=== PATIENT | female | born 1990 | race Caucasian/White ===

== ENCOUNTER → 2018-02-02 11:18 | Outpatient (REF) | payer MEDICAID, SELFPAY ==
[2018-02-05 15:05] LABS: Chlamydia Result Negative; GC Result Negative; Specimen Description CERVIX
== END ==
LOC: LBN 11:18
PROVIDERS: PCP Family Medicine; Visit Provider Nurse Practitioner Women's Health
DX: Z11.3 Encounter for screening for infections with a predominantly sexual mode of transmission (principal)
CPT/HCPCS: 87491; 87591

== ENCOUNTER 2018-11-19 11:27 | Outpatient (CLI) | payer MEDICAID, SELFPAY ==
--- NOTE | 2018-11-19 11:15 | DI.RAD_ITS ---
SYMPTOM/DIAGNOSIS: LT FOOT AND ANKLE PAIN, BRUISE, S93.402A LEFT ANKLE: There is some soft tissue swelling, greatest around the lateral malleolus. No fracture or ankle mortise widening is seen. No talar dome defect is identified. IMPRESSION: Soft tissue swelling. LEFT FOOT: No fracture or dislocation is seen. There is medial prominence of the navicular. IMPRESSION: No acute abnormality.
== END 2018-11-19 11:47 ==
PROVIDERS: PCP Family Medicine; Visit Provider Nurse Practitioner Family
DX: S93.402A Sprain of unspecified ligament of left ankle, initial encounter (principal); M25.572 Pain in left ankle and joints of left foot; M79.672 Pain in left foot; M79.89 Other specified soft tissue disorders
CPT/HCPCS: 73610; 73630

== ENCOUNTER 2019-03-12 10:25 | Emergency (ER) | payer MEDICAID, SELFPAY ==
[2019-03-12 10:27] VITALS: BP 131/67; PULSE 83; RESP 16; O2SAT 99
--- NOTE | 2019-03-12 10:39 | W.ED.GENAD ---
Discharge Plan Disposition Patient Disposition: HOME Discharge Details Chief Complaint: Nk/Back Pain Clinical Impression: Low back pain, Syncope Primary Care Provider: Madhuri Chaney ED Provider: Reg Day Home Meds and New Rx's Prescriptions: New diazepam [Valium] 2 mg tablet 2 mg PO BID PRN (Reason: muscle spasm) Qty: 10 RF: 0 Continued lidocaine [Anecream] 30 GM cream 1 gm Topical Q6H PRN Qty: 1 RF: 2 cholecalciferol (vitamin D3) [Vitamin D3] 2,000 UNIT capsule 2,000 unit PO DAILY RF: 0 Mirena 1 EACH intrauterine device 1 ea Intrauterine ONCE Qty: 1 RF: 0 Discharge Instructions Instructions: Syncope (ED), Low Back Strain (ED) Additional Instructions: Please take ibuprofen over the counter. Take 600mg by mouth every 6 hours as needed for pain. Please take acetaminophen (tylenol) - 650mg every 6 hours by mouth as needed for pain. Use [id number] lidocaine patches. Dose according to label. Please drink plenty of fluid and allow for plenty of rest. Please avoid activities that worsen back pain including heavy lifting, bending, twisting. Please contact your primary care physician to arrange follow-up. Return to the ER for any worsening or new concerning symptoms. Stand Alone Forms: Work Release Referrals: Madhuri Chaney MD, [place] [Primary Care Provider] - Discharge Data Discharge Date/Time-TO BE ENTERED AT DEPARTURE: 03/12/19 14:57 Medical Decision Making 12:00 -- 29-year-old female presents with severe left low back pain and spasm and syncopal episode at PCP office. Patient hemodynamically stable and mentating well. Screening ECG was reviewed and interpreted by me: Normal sinus rhythm 75 bpm, normal axis, no signs of HCM, no signs of Brugada, no WPW, nondiagnostic. PERC applies. Suspect syncope secondary to hypovolemia in combination with severe pain. Consider electrolyte abnormalities. Less likely arrhythmia. I will check screening labs and monitor patient on secured entrance monitor. I suspect back pain is related to muscle spasm versus disc herniation. She is neurologically intact. No signs of saddle anesthesia. Plan to treat with lidocaine patch, Toradol, Valium. Plan to reassess. Will give IV fluid bolus. 14:45 -- Patient was reassessed after analgesia and significantly improved. No able to ambulate. Patient remains hemodynamically stable. Patient now able to ambulate. Plan will be to have her follow-up with her primary care physician. Disposition decision was made weighing the risks and benefits of hospitalization versus outpatient treatment, the risk for further decompensation, and the patient's wishes. The patient was stable and requested discharge. Prior to discharge, my usual and customary return precautions were reviewed with the patient - this included follow-up instructions and reason to return to the emergency department if condition worsens, does not improve as expected, or other new concerns arise. HPI General Mode of arrival: ambulatory. Date/Time Provider Initiated Documentation: 03/12/19 10:30. Limitations to Documentation: no limitations. Information obtained by: patient. HPI Narrative: 29-year-old female presents after syncopal episode at primary care clinic. Patient notes severe pain in her left lower back that started last week. Pain improved over the weekend and she is able to attend a wedding. Pain returned yesterday and has persisted. Pain was severe yesterday. She saw her chiropractor. She did take some ibuprofen yesterday. She has not taken any ibuprofen today. She notes that she has not eaten or drinking anything this morning. She had an appoint with her primary care physician and when she went to get out of the car she was feeling somewhat dizzy walking to the clinic. When she got to the clinic she felt like she was going to pass out and was assisted to a wheelchair. Patient was then assisted to the floor. She did lose consciousness. The patient's primary care physician, patient was found in waiting room in wheelchair noted to be somnolent and had a syncopal episode while being assisted to the ground. She was found to have dilated fixed pupils. Intranasal Narcan was administered and the patient immediately responded within seconds noting that she was feeling like she could see again. Patient was going to see PCP today for Patient denies opioid use. Related Data Home Medications Medication Instructions Recorded Confirmed lidocaine [Anecream] 1 gm TOPICAL Q6H PRN #1 tub 10/28/16 03/14/19 cholecalciferol (vitamin D3) 2,000 unit PO DAILY 12/25/17 03/14/19 [Vitamin D3] Mirena 1 ea INTRAUTERINE ONCE #1 implant 02/02/18 03/14/19 diazepam [Valium] 2 mg PO BID PRN #10 tab 03/12/19 03/14/19 Previous Rx's Medication Instructions Recorded Mirena 1 ea INTRAUTERINE ONCE #1 implant 02/02/18 diazepam [Valium] 2 mg PO BID PRN #10 tab 03/12/19 Allergies Allergy/AdvReac Type Severity Reaction Status Date / Time ciprofloxacin [From Cipro] AdvReac Severe TOOK OUT Verified 03/14/19 13:24 HER IMMUNE SYSTEM General Stated Complaint: Nk/Back Pain CECILY: 3 Review of Systems Review of Systems ROS Unobtainable: All systems reviewed & are unremarkable except as noted in HPI and below Constitutional Constitutional: Denies fever(s) Neurologic Neurologic: Reports as per HPI [facility] Medical History IBS (irritable bowel syndrome) Hedy-rectal abscess Rectal bleeding Surgical History Colonoscopy - MAC History of colonoscopy (Inactive 04/28/14) Incision & Drainage, Abscess or Hematoma perirectal abscess Family History Mother No problems noted. Father Neoplasm PROSTATE Prostate cancer Brother Anxiety Depression Maternal Grandfather , 63 Diabetes Heart disease Hyperlipidemia Lung cancer Paternal Grandfather , 81 Heart disease Hyperlipidemia Maternal Grandmother , late 50s Depression Leukemia Paternal Grandmother , 80 History of agoraphobia Social History Smoking/Tobacco Use Status: Never Alcohol Intake: current Alcohol Intake frequency: a few times a week Alcohol type: wine and hard liquor Drug use: Rarely Substance use type: marijuana Caregiver/Support person: Yes Housing: apartment Do you need help understanding health information?: Never Pets and animals: Yes Pets and animals: cat(s) Sexually active: Yes Do you think of yourself as: straight/heterosexual Current gender identity: female What is your relationship status?: refused to answer How often do you talk on the phone with friends or family?: decline to answer How often do you get together with friends or relatives?: three or more times per week How often do you attend rastafarian or restorationism services?: decline to answer Do you belong to any clubs or organized social groups?: no Panel score (0-1 are the most socially isolated patients): 1 What type of physical activity do you participate in: bicycling and other Details: Spininng Duration: > 90 minutes/day Frequency: 5-6 times per week Roxy/Adventist: No preference Special roxy needs: No Seatbelt use: always Helmet use: Yes Helmet use: always Drive intox or ride w/intox corrugated 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 Do you feel safe at home: Yes Do you feel safe in your relationship?: Yes Exam Const General: cooperative and no acute distress HENMT Head: normocephalic and atraumatic Mouth: moist mucous membranes Eyes Conjunctivae: normal conjunctivae Sclera: normal sclerae EOM: EOM intact bilaterally Neck Neck: trachea midline and supple Resp Auscultation: clear to auscultation bilaterally, no rales, no rhonchi and no wheezes Cardio Jugular venous pressure: no JVD Rate: regular rate and not tachycardic Rhythm: regular rhythm Heart Sounds: no murmurs GI Palpation: soft, not firm, no guarding, no masses, not rigid and nontender Back/Spine/Pelvis Thoracic/Lumbar Spine: paraspinal tenderness (lumbar), No thoracic spinal tenderness and No lumbar spinal tenderness Skin General skin exam: no rashes or lesions noted Neuro General: alert, awake, oriented x3 and tone normal Cranial Nerves: CN's II-XI intact bilaterally Cognition: normal cognition Speech: speech normal Motor: muscle tone normal throughout and strength 5/5 throughout Sensory Exam: no sensory deficits noted and other (no saddle anesth) Extrem General: no edema Psych Appearance: grossly normal Mental Status: mental status grossly normal Course Vital Signs Vital signs: Vital Signs Pulse 83 03/12/19 10:27 Respiratory Rate 16 03/12/19 10:27 Blood Pressure 131/67 03/12/19 10:27 Pulse Oximetry 99 03/12/19 10:27 Pulse 83 03/12/19 10:27 Respiratory Rate 16 03/12/19 10:27 Respiratory Effort Non-Labored 03/12/19 10:38 Blood Pressure 131/67 03/12/19 10:27 Blood Pressure Position Supine 03/12/19 10:27 Pulse Oximetry 99 03/12/19 10:27 Oxygen Delivery Method Room Air 03/12/19 10:27 Oxygen Flow Rate 0 03/12/19 10:27 Pain Level 10 03/12/19 10:27 Comment 03/12/19 10:27
[2019-03-12 10:50] LABS: Abs Immature Grans 0.02 k/cumm (0.0-0.09); Absolute Basophil Count 0.02 k/cumm (0.0-0.2); Absolute Lymphocyte Count 1.35 k/cumm (1.2-3.4); Absolute Monocyte Count 0.78 k/cumm (0.11-0.7); Absolute Neutrophil Count 7.63 k/cumm (1.2-6.7); Basophils % 0.2; HCT 39.7 % (36.0-46.0); HGB 13.5 g/dL (12.0-15.5); Immature Grans % 0.2; Lymphocytes % 13.6; Mean Corpuscular Hemoglobin 30.1 pg (27.0-33.0); Mean Corpuscular Volume 88.6 fL (80-95); Mean Platelet Volume 9.5 fL (8.0-11.0); Monocytes % 7.9; Neutrophils % 77.1; Platelet Count 318 x1000/uL (130-400); RBC 4.48 m/cumm (4.00-5.20); RBC Distribution Width 12.1 % (11.7-14.6)
[2019-03-12 11:04] LABS: ALT 20 U/L (14-59); AST 18 U/L (15-37); Albumin 3.7 g/dL (3.4-5.0); Alkaline Phosphatase 80 U/L (46-116); Anion Gap 11.8 mmol/L (3-11); BUN 5 mg/dL (7-18); Bilirubin, Total 0.6 mg/dL (0.2-1.0); CO2 24.2 mmol/L (21.0-32.0); CREATININE 0.82 mg/dL (0.55-1.02); Calcium 8.7 mg/dL (8.5-10.1); Chloride 105 mmol/L (98-107); Glucose 107 mg/dL (70-100); Potassium 3.6 mmol/L (3.5-5.1); Sodium 141 mmol/L (136-145); Total Protein 6.9 g/dL (6.4-8.2)
[2019-03-12 11:05] LABS: Troponin I < 0.05 ng/mL (0.00-0.06)
[2019-03-12] MEDS: Normal Saline 1,000 ML 1000 ML IV (11:19)
[2019-03-12] MEDS: Ketorolac 30 MG/ML VIAL IVP (11:22)
[2019-03-12] MEDS: diazePAM 5 MG TAB PO (11:22)
[2019-03-12] MEDS: Lidocaine 5% Patch 1 PATCH (12:43)
--- NOTE | 2019-03-12 13:30 | NUR.NOTE ---
Nursing Note: pt resting in stretcher. No signs of distress. mother at bedside pt reports that she still has back pain, but that her back has not spasmed since lidocaine patch application. pt moving around with less difficulty.
[2019-03-12 13:37] LABS: *AMPHETAMINES SCREEN URINE Negative (Negative); *BARBITURATES SCREEN URINE Negative (Negative); *BENZODIAZEPINES SCREEN URINE Negative (Negative); Cannabinoids THC Negative (Negative); Cocaine Screen,Urine Negative (Negative); METHADONE URINE SCREEN Negative (Negative); OPIATES URINE SCREEN Negative (Negative)
[2019-03-12 13:39] LABS: Tricyclic Antidepressants Negative (Negative)
[2019-03-12 14:57] VITALS: BP 103/85; PULSE 85; RESP 16; O2SAT 100
== END 2019-03-12 14:57 | disposition home or self-care (01) ==
PROVIDERS: Emergency Provider Student in an Organized Health Care Education/Training Program; PCP Family Medicine
DX: M54.9 Dorsalgia, unspecified (principal); R42 Dizziness and giddiness
CPT/HCPCS: 36415; 80053; 80307; 81025; 93005; 96361; 96374; 99284; 84484; 85025; 93010; J1885

== ENCOUNTER 2019-03-14 08:20 | Outpatient (CLI) | payer MEDICAID, SELFPAY ==
--- NOTE | 2019-03-14 09:30 | DI.RAD_ITS ---
EXAM: XR LUMBAR SPINE COMPLETE INDICATION: acute susy low back pain, M54.5. COMPARISON: No exams were available for comparison TECHNIQUE: 2D digital imaging was performed. FINDINGS: Five views were obtained. Note is made of an IUD in the pelvic midline. The hips and SI joints appe ar unremarkable as visualized. Intervertebral disc spaces are well maintained. No evidence of spond ylolysis or spondylolisthesis. No bony abnormality seen. IMPRESSION: Negative examination of the lumbar spine.
== END 2019-03-14 08:40 ==
PROVIDERS: PCP Family Medicine; Visit Provider Family Medicine
DX: M54.5 Low back pain (principal); Z97.5 Presence of (intrauterine) contraceptive device
CPT/HCPCS: 72110

== ENCOUNTER 2020-10-09 04:38 | Outpatient (CLI) | payer MEDICAID, SELFPAY ==
--- NOTE | 2020-10-09 08:40 | DI.RAD_ITS ---
Exam(s) XR SACROILIAC JOINTS EXAM: XR SACROILIAC JOINTS CLINICAL HISTORY: ACUTE BILAT LOW BACK PAIN,SI PAIN,M54.5. TECHNIQUE: 2D digital imaging was performed. COMPARISON: CR XR LUMBAR SPINE COMPLETE from 03/14/2019 FINDINGS: BONES: No acute fracture is present. No bony destructive lesion is seen. JOINTS: No dislocation present. No erosions, ankylosis or sclerosis in the sacroiliac joints. SOFT TISSUE: There is an IUD in the pelvis. IMPRESSION: Unremarkable radiographs of the sacroiliac joints. DATA REPOSITORY: RADIATION DOSE DELIVERED:
== END 2020-10-09 04:58 ==
PROVIDERS: PCP Family Medicine; Visit Provider Family Medicine
DX: M54.5 Low back pain (principal); M53.3 Sacrococcygeal disorders, not elsewhere classified; Z97.5 Presence of (intrauterine) contraceptive device
CPT/HCPCS: 72202

== ENCOUNTER 2020-11-09 09:50 | Outpatient (CLI) | payer MEDICAID, SELFPAY ==
[2020-11-09 12:35] LABS: ESR < 1 mm/hr (0-20)
[2020-11-09 12:43] LABS: C-Reactive Protein 0.07 mg/dL (0.0-0.3)
[2020-11-09 16:37] LABS: Rheumatoid Factor <8.6 IU/mL (<12.0)
[2020-11-10 10:42] LABS: Cyclic Citrullinated Peptide <2.5 U/mL (<5.0)
[2020-11-10 11:08] LABS: Lyme Ab w Rflx to Lyme Confirm Negative (Negative)
[2020-11-10 14:24] LABS: ANA Interpretation Negative (Negative)
[2020-11-12 15:15] LABS: HLA-B27 Result Negative
== END 2020-11-09 09:51 | disposition home or self-care (01) ==
LOC: LOS 09:51
PROVIDERS: PCP Family Medicine; Visit Provider Family Medicine
DX: M54.5 Low back pain (principal); M25.59 Pain in other specified joint
CPT/HCPCS: 85652; 86200; 86812; 86038; 86140; 86431; 86618

== ENCOUNTER 2020-11-23 01:50 | Outpatient (CLI) | payer MEDICAID, SELFPAY ==
--- NOTE | 2020-11-23 11:30 | DI.MRI_ITS ---
Exam(s) MR LUMBAR SPINE WO EXAM: MR LUMBAR SPINE WO CLINICAL HISTORY: LOW BACK PAIN times 3 yrs. ? sequestered disc,RADICULOPATHY,SI JOINT DYS-. TECHNIQUE: Multiplanar multisequence MRI of the Lumbar spine was performed. COMPARISON: CR XR LUMBAR SPINE COMPLETE from 03/14/2019 CR XR LUMBAR SPINE COMPLETE from 03/14/2019 FINDINGS: In reviewing the March 2019 plain films the 12th ribs are rudimentary. Conus medullaris is at normal level. There is no evidence of conus mass nor subjacent clumping of in trathecal nerve roots to suggest arachnoiditis. The distal thecal sac appears unremarkable.There is no evidence of Tarlov intrasacral cysts nor other significant findings within the sacral canal Bones:There are no fractures nor ominous osseous lesions in the lumbar vertebral bodies and visualize d sacrum. With respect to the individual levels... T12-L1: Unremarkable L1-2: Normal disc height and signal. No disc herniation nor central canal stenosis.No foraminal steno sis L2-3: Normal disc height. No disc herniation nor central canal stenosis.No foraminal stenosis.No face t arthropathy. L3-4: Normal disc height. Decreased disc hydration signal. There is symmetrical annular bulging whi ch slightly flattens the anterior aspect of the thecal sac.Central canal dimensions are lower normal. No foraminal stenosis. No significant facet arthropathy. L4-5: Normal disc height. There is a large right paracentral disc herniation at this level which ext ends posteriorly 7 millimeters and is approximately 12 millimeters wide. This compresses the central and right side of the thecal sac at this level as well as occupying the right lateral recess. It do es not extend appreciably into the exiting right neural foramen. There is no significant facet arthr opathy at this level. L5-S1: Normal disc height and signal. At this level there is a central subligamentous disc bulge whi ch slightly indents the anterior aspect of thecal sac. There is no significant central canal stenosi s. The bulge does not extend into the exiting neural foramina and there is no foraminal stenosis on either side. No facet arthropathy. Soft tissues: paraspinal soft tissues appear unremarkable. IMPRESSION: 1. Main finding here is a large central-right paracentral disc protrusion at L4-5 level as described above. This compresses the central and right side of the thecal sac and occupies the right lateral r ecess without extending appreciably into the exiting right neural foramen. 2. Smaller subligamentous central disc bulge at L5-S1 level. No significant canal stenosis nor praful inal stenosis at this level. 3. Mild symmetrical annular bulging at L3-4 level. DATA REPOSITORY:
== END 2020-11-23 02:10 ==
PROVIDERS: PCP Family Medicine; Visit Provider Family Medicine
DX: M51.16 Intervertebral disc disorders with radiculopathy, lumbar region (principal); M53.3 Sacrococcygeal disorders, not elsewhere classified; M51.17 Intervertebral disc disorders with radiculopathy, lumbosacral region
CPT/HCPCS: 72148

== ENCOUNTER 2021-06-15 15:47 | Outpatient (REF) | payer MEDICAID, SELFPAY ==
--- NOTE | 2021-06-15 15:10 | PAPFT_PTH ---
PATIENT: Barbara Gordon LOC: PATTI U#:[id number] AGE/SX: 31/F ROOM: RE06/15/[address]: Adriana Regalado NP : 1990 BED: DIS: 06/15/2021 SPEC #: [id number] RECD: 06/15/21 18:25 STATUS: JORGE VASQUEZ #: [id number] MIAH: 06/15/21 15:[address]: Adriana Regalado NP DEPT: [facility] Cytology RECD BY: Nishi Wright ENTERED: 06/15/21 18:26 SP TYPE: PAPFT OTHR DR: Madhuri Chaney MD, DC Tissues: 1 - CX/ENDOCX FOR PAP SMEARS Procedures: PAP THIN PREP/UVM Screening Comments: [id number]
== END 2021-06-15 15:48 | disposition home or self-care (01) ==
LOC: LBN 15:47
PROVIDERS: PCP Family Medicine; Visit Provider Nurse Practitioner Women's Health
DX: Z12.4 Encounter for screening for malignant neoplasm of cervix (principal)
CPT/HCPCS: 88142

== ENCOUNTER 2021-06-25 01:43 | Outpatient (CLI) | payer MEDICAID, SELFPAY ==
[2021-06-26 14:01] LABS: COVID-19 RT-PCR UVMMC Result Positive (Negative)
== END 2021-06-25 01:44 | disposition home or self-care (01) ==
PROVIDERS: PCP Family Medicine; Visit Provider Dentist General Practice
DX: Z20.822 Contact with and (suspected) exposure to COVID-19 (principal)
CPT/HCPCS: U0003

== ENCOUNTER 2024-05-08 02:25 | Outpatient (CLI) | payer BC, SELFPAY ==
[2024-05-08 17:08] LABS: Panorama Kit Sent via Fed Ex
[2024-05-08 17:14] LABS: Abs Immature Grans 0.04 10^3/uL (0.0-0.06); Absolute Basophil Count 0.04 10^3/uL (0.0-0.2); Absolute Eosinophil Count 0.15 10^3/uL (0.0-0.7); Absolute Lymphocyte Count 1.94 10^3/uL (1.2-3.4); Absolute Neutrophil Count 7.27 10^3/uL (1.2-6.7); Basophils % 0.4 %; Eosinophils % 1.5 %; HCT 37.9 % (36.0-46.0); HGB 12.8 g/dL (11.2-15.7); Immature Grans % 0.4 %; Lymphocytes % 19.1 %; MCH 29.6 pg (27.0-33.0); MCHC 33.8 % (32.0-36.0); MCV 88 fL (80-95); MPV 9.8 fL (8.0-11.0); Monocytes % 6.9 %; Neutrophils % 71.7 %; Platelet Count 286 10^3/uL (130-400); RBC 4.33 10^6/uL (3.93-5.22); RDW 11.8 % (11.7-14.6); WBC 10.14 10^3/uL (4.4-10.8)
[2024-05-09 19:31] LABS: Hepatitis B Surface Ag Negative (Negative)
[2024-05-09 20:03] LABS: HIV-1/2 Ag & Ab Screen Negative (Negative)
[2024-05-09 20:07] LABS: Hepatitis C Ab w Rflx HCV PCR Negative (Negative)
[2024-05-10 11:21] LABS: Rubella IgG Ab (UVM) Positive (See Note)
[2024-05-10 11:25] LABS: Varicella IgG Antibody Positive (See Note)
[2024-05-10 11:26] LABS: Chlamydia Result Negative (Negative); GC Result Negative (Negative)
[2024-05-12 15:18] LABS: Syphilis IgG w/Reflex Nonreactive (Nonreactive)
== END 2024-05-08 02:26 | disposition home or self-care (01) ==
LOC: LBO 02:25
PROVIDERS: PCP Nurse Practitioner Family; Visit Provider Advanced Practice Midwife
DX: Z34.91 Encounter for supervision of normal pregnancy, unspecified, first trimester (principal)
CPT/HCPCS: 36415; 86787; 86803; 86850; 86900; 86901; 87340; 87389; 87491; 87591; 85025; 86762; 86780; 87086

== ENCOUNTER 2024-05-14 02:22 | Outpatient (CLI) | payer BC, SELFPAY ==
[2024-05-14 12:35] LABS: Glucose,1 Hr (Glucola) 76 mg/dL (80-140)
== END 2024-05-14 02:23 | disposition home or self-care (01) ==
LOC: LBO 02:22
PROVIDERS: PCP Nurse Practitioner Family; Visit Provider Advanced Practice Midwife
DX: Z34.90 Encounter for supervision of normal pregnancy, unspecified, unspecified trimester (principal)
CPT/HCPCS: 36415; 82950

== ENCOUNTER 2024-08-23 00:19 | Outpatient (CLI) | payer MEDICAID, SELFPAY ==
[2024-08-23 12:11] LABS: HCT 36.6 % (36.0-46.0); HGB 12.3 g/dL (11.2-15.7); MCH 29.1 pg (27.0-33.0); MCHC 33.6 % (32.0-36.0); MCV 87 fL (80-95); MPV 9.6 fL (8.0-11.0); Platelet Count 247 10^3/uL (130-400); RBC 4.22 10^6/uL (3.93-5.22); RDW 12.2 % (11.7-14.6); RDW-SD 38.6 fL; WBC 13.14 10^3/uL (4.4-10.8)
[2024-08-23 12:49] LABS: Glucose,1 Hr (Glucola) 64 mg/dL (80-140)
== END 2024-08-23 00:20 | disposition home or self-care (01) ==
LOC: LBO 00:19
PROVIDERS: PCP Nurse Practitioner Family; Visit Provider Advanced Practice Midwife
DX: Z34.92 Encounter for supervision of normal pregnancy, unspecified, second trimester (principal)
CPT/HCPCS: 36415; 82950; 85027

== ENCOUNTER 2024-10-18 12:14 | Outpatient (REF) | payer MEDICAID, SELFPAY | END 2024-10-18 12:15 | disposition home or self-care (01) | LOC: LBN 12:14 | PROVIDERS: PCP Nurse Practitioner Family; Visit Provider Advanced Practice Midwife | DX: Z34.93 Encounter for supervision of normal pregnancy, unspecified, third trimester (principal) | CPT/HCPCS: 87081 ==

== ENCOUNTER 2024-11-02 23:14 | Inpatient (IN) | payer MEDICAID, SELFPAY ==
[2024-11-02 23:08] VITALS: TEMP 36.7
[2024-11-02 23:27] VITALS: BP 133/72; PULSE 90; RESP 16; TEMP 37.1
[2024-11-02 23:34] LABS: ROM Plus Positive
--- NOTE | 2024-11-02 23:48 | W.PM.OBHPL1 ---
Date of service: 11/02/24 Time of Service: 23:49 Assessment and Plan Assessment and plan (1) Spontaneous onset of labor: Status: Acute Assessment and plan: Admit to Center and routine admission labs. Reviewed risks of prolonged rupture of membranes and option of expectant management or labor induction at this time. Barbara prefers to try to nap and defer cervical ripening. Comfort measures. Will reassess for cervical dilation when her condition changes. Anticipate . OB-HPI Labor/Delivery History of Present Illness Reason for Visit: labor Chief Complaint: Uterine Contractions; Suspected Rupture of Membranes , Associated Signs and Symptoms of Suspected ROM: cramping. IVET Calculator Estimated Delivery Date Method Current WG Current Estimate 11/17/24 Ultrasound #1 38w 0d Other Estimates 11/13/24 LMP (Certain) 38w 4d Comments: Barbara describes some contractions as strong. History of Present Expected Delivery Route/Plan - CNM FOB/ - Everardo Gordon (first child) BG Likes water but also thinks she may want epidural team is Ry only. GBS negative Specific Issues/Plan 1. BMI >32, early glucola 72, 28 wk glucola 64 2. Low dose ASA for nulliparity, BMI & hx white coat syndrome 3. cfDNA (declines gender) low risk x5, declines CF/SMA screen 4. 5P screen negative, PHQ9 score=3 5. Desires pre-delivery LC consult Assessment: History Reviewed & Current Informed Consent Informed Consent: Augmentation of Labor and Risk,Benefits,Alternatives Discussed PFSH All Active Problems (Updated 11/02/24 @ 23:49 by Kassidy Olson CNM) Spontaneous onset of labor (Acute) History of episode of anxiety (Acute) (Acute) Chronic bilateral low back pain (Acute) L4-L5 disc bulge Lumbar radiculopathy (Acute) Sacroiliac joint dysfunction of both sides (Acute) Arthralgia (Acute) Medical History (Updated 11/02/24 @ 23:49 by Kassidy Olson CNM) Spasm of muscle of lower back Annual physical exam (12/25/17) Missed menses L4-L5 disc bulge Hedy-rectal abscess IBS (irritable bowel syndrome) Rectal bleeding Surgical History History of colonoscopy (04/28/14) Incision & Drainage, Abscess or Hematoma perirectal abscess Colonoscopy - MAC Family History Mother No problems noted. Father Neoplasm PROSTATE Prostate cancer Brother Anxiety Depression Maternal Grandfather , 63 Diabetes Heart disease Hyperlipidemia Lung cancer Paternal Grandfather , 81 Heart disease Hyperlipidemia Maternal Grandmother , late 50s Depression Leukemia Paternal Grandmother , 80 History of agoraphobia Social History Smoking/Tobacco Use Status: Current-Occasional Smoking risk assessment performed?: Yes Alcohol Intake: current Alcohol Intake frequency: a few times a week Alcohol type: wine and hard liquor Drug use: Rarely Substance use type: marijuana Caregiver/Support person: Yes Housing: apartment Do you need help understanding health information?: Never Pets and animals: Yes Pets and animals: cat(s) Sexually active: Yes Do you think of yourself as: straight/heterosexual Current gender identity: female What is your relationship status?: refused to answer How often do you talk on the phone with friends or family?: decline to answer How often do you get together with friends or relatives?: three or more times per week How often do you attend hindu or baptism services?: decline to answer Do you belong to any clubs or organized social groups?: no Panel score (0-1 are the most socially isolated patients): 1 What type of physical activity do you participate in: bicycling and other Details: Spininng Duration: > 90 minutes/day Frequency: 5-6 times per week Roxy/Congregational: No preference Special roxy needs: No Seatbelt use: always Helmet use: Yes Helmet use: always Drive intox or ride w/intox rolloff truck driver: No Do you feel safe at home: Yes Do you feel safe in your relationship?: Yes Female Reproductive History Menstrual control method: none History History 1 Para 0 Hx # Term Pregnancies 0 Multiple births 0 Hx # Pregnancies 0 Ectopic pregnancies 0 AB induced 0 Hx Number of Living Children 0 AB spontaneous 0 Meds Allergies and Home Medications Allergies Allergy/AdvReac Type Severity Reaction Status Date / Time ciprofloxacin (From Cipro) AdvReac Severe TOOK OUT Verified 11/01/24 09:50 HER IMMUNE SYSTEM Home Medications ?Medication ?Instructions ?Recorded ?Confirmed ?Type acetaminophen 325 mg tablet 650 mg PO Q4H PRN 06/30/20 11/01/24 History (Tylenol) aspirin 81 mg tablet,delayed 81 mg PO DAILY #90 tabs 05/08/24 11/01/24 Rx release vits no.126-ferrous fum 1 tab PO DAILY 05/08/24 11/01/24 History 28 mg iron-folic acid 800 mcg tablet (Classic ) magnesium 200 mg tablet 200 mg PO DAILY 09/20/24 11/01/24 History Saccharomyces boulardii 250 mg 250 mg PO DAILY 10/18/24 11/01/24 History capsule (Daily Probiotic (S. boulardii)) pyridoxine (vitamin B6) 25 mg 25 mg PO DAILY PRN 11/01/24 11/01/24 History tablet Exam Physical Exam Vital signs: Temp Pulse Resp BP 98.7 F 90 16 133/72 11/02/24 23:27 11/02/24 23:27 11/02/24 23:27 11/02/24 23:27 Vital Signs Reviewed: Yes Constitutional Constitutional: no acute distress Detailed Labor and Delivery Exam Effacement (%): 80 station: -1 Cervix position: posterior Consistency: soft Oliver Score: Cervical Points Exam 0 1 2 3 Dilation Closed 1-2cm 3-4 cm 5-6cm Effacement 0-30% 40-50% 60-70% 80% Consistency Firm Medium Soft Station -3 -2 -1,0 +1,+2 Position Posterior Mid Anterior Amniotic Membrane Status: Ruptured (clear fluid) Rupture Method: Spontaneous Amniotic Fluid: Clear Monitor Mode: External Contraction Frequency(min): every 2-4 Contraction Duration(sec): 40-60 Contraction Intensity: Moderate Comments: Unable to reach cervix due to patient discomfort and posterior cervix. Fetus A Heart Rate Baseline: 130 Monitor Accelerations: 15 X 15 Monitor Decelerations: None Variability: Moderate (6-25 BPM) Categories: Category I Est. Weight: 7 lb HEENT Exam HEENT Exam: Normal Respiratory Exam Respiratory Exam: Normal Cardiovascular Exam Cardiovascular Exam: Normal Abdominal Exam Abdominal Exam: Normal Exam Exam: Normal Back/Spine/Pelvis Exam Back Exam: Normal Skin Exam Skin Exam: Normal Psychiatric Exam Psychiatric Exam: Normal Risk Assessment Risk for Shoulder Dystocia Historical/Initial OB: POSITIVE FOR: Pre- BMI>30; NEGATIVE FOR: Pelvic Abnormality, Previous Shoulder Dystocia or Previous Macrosomia 36 Weeks: NEGATIVE FOR: Current Gestational DM, EFW>4500gms or Maternal Weight Gain>40lbs 40 Weeks: NEGATIVE FOR: EFW> 4500 gms, Maternal Weight Gain >40lb or Post Dates Increased Risk?: Yes Risk for Pre-Eclampsia Date Initiated/Initials: to start at 12 wks, JK Yes, if one or more: NEGATIVE FOR: Hx Pre-E/Gest HTN, Chronic HTN, Multiple Gestation, Pre-gestational DM, Renal Disease, Systemic Lupus or APA Syndrome Yes, if 2 or more: POSITIVE FOR: Nulliparity and BMI>30; NEGATIVE FOR: Age>= 35 yrs, >10yr btwn pregnancies, ethinicty, Mother/Sister w/ Pre-E or Previous IUGR Risk for Post- Hemorrhage Initial: NEGATIVE FOR: Multiple Gestation, Previous PPH, Known Clotting Deficiency, Grand Multiparity or Anticoagulation 36 Weeks: NEGATIVE FOR: Anemia, hgb<10, Low platelets(thrombocytopenia), Gestational HTN or Pre-E, Polyhydraminios or EFW>4500gms 40 Weeks: NEGATIVE FOR: Anemia, hgb<10, Low platelets (thrombocytopenia), Gestation HTN or Pre-E, Polyhydraminios or EFW>4500gms At Risk?: No Risks Reviewed Risks Reviewed Upon Admission: Yes
[2024-11-03] VITALS (99 sets, daily range): BP systolic 113–147; BP diastolic 55–92; PULSE 80–111; RESP 16–18; TEMP 36.4–37.4; O2SAT 94–100; BMI 37.2
[2024-11-03 00:06] LABS: HCT 35.3 % (36.0-46.0); HGB 11.9 g/dL (11.2-15.7); MCH 28.4 pg (27.0-33.0); MCHC 33.7 % (32.0-36.0); MCV 84 fL (80-95); MPV 9.6 fL (8.0-11.0); Platelet Count 246 10^3/uL (130-400); RBC 4.19 10^6/uL (3.93-5.22); RDW 12.5 % (11.7-14.6); RDW-SD 37.9 fL; WBC 13.17 10^3/uL (4.4-10.8)
[2024-11-03 00:29] LABS: ALT 31 U/L (14-59); AST 21 U/L (15-37); Albumin 2.8 g/dL (3.4-5.0); Alkaline Phosphatase 165 U/L (46-116); Anion Gap 9.7 mmol/L (3-11); BUN 10 mg/dL (7-18); Bilirubin, Total 0.2 mg/dL (0.2-1.0); CO2 23.3 mmol/L (21.0-32.0); CREATININE 0.5 mg/dL (0.55-1.02); Calcium 9.1 mg/dL (8.5-10.1); Chloride 103 mmol/L (98-107); Estimated GFR 127.72 (mL/min/1.73m2); Glucose 124 mg/dL (74-106); Potassium 3.5 mmol/L (3.5-5.1); Sodium 136 mmol/L (136-145); Total Protein 6.8 g/dL (6.4-8.2)
--- NOTE | 2024-11-03 06:04 | W.PM.OBNL1 ---
Date of service: 11/03/24 Time of Service: 06:04 Informed Consent Informed Consent: Augmentation of Labor and Risk,Benefits,Alternatives Discussed Contractions Monitor Mode: Palpation Contraction Frequency(min): evry 3-4 min Contraction Duration(sec): 60 Intensity: Moderate Fetus A Monitor: Doppler Heart Rate Baseline: 140 Variability: Moderate (6-25 BPM) Categories: Category I Accelerations: 15 X 15 Decelerations: None Amniotic Membrane Status: Ruptured Assessment and Plan Assessment and plan (1) Spontaneous onset of labor: Status: Acute Assessment and plan: Will asess for cervical change when Barbara awakes. Anticipate . Objective Abnormal lab results 11/02/24 Range/Units 23:58 WBC 13.17 H (4.4-10.8) 10^3/uL Hct 35.3 L (36.0-46.0) % Creatinine 0.5 L (0.55-1.02) mg/dL Glucose 124 H (74-106) mg/dL Alkaline Phosphatase 165 H (46-116) U/L Albumin 2.8 L (3.4-5.0) g/dL Temp Pulse Resp BP 98.1 F 86 16 135/73 11/03/24 05:38 11/03/24 04:03 11/03/24 00:28 11/03/24 04:03 Laboratory Results WBC 13.17 10^3/uL (4.4-10.8) H 11/02/24 23:58 RBC 4.19 10^6/uL (3.93-5.22) 11/02/24 23:58 Hgb 11.9 g/dL (11.2-15.7) 11/02/24 23:58 Hct 35.3 % (36.0-46.0) L 11/02/24 23:58 MCV 84 fL (80-95) 11/02/24 23:58 MCH 28.4 pg (27.0-33.0) 11/02/24 23:58 MCHC 33.7 % (32.0-36.0) 11/02/24 23:58 RDW 12.5 % (11.7-14.6) 11/02/24 23:58 Plt Count 246 10^3/uL (130-400) 11/02/24 23:58 MPV 9.6 fL (8.0-11.0) 11/02/24 23:58 Sodium 136 mmol/L (136-145) 11/02/24 23:58 Potassium 3.5 mmol/L (3.5-5.1) 11/02/24 23:58 Chloride 103 mmol/L (98-107) 11/02/24 23:58 Carbon Dioxide 23.3 mmol/L (21.0-32.0) 11/02/24 23:58 Anion Gap 9.7 mmol/L (3-11) 11/02/24 23:58 BUN 10 mg/dL (7-18) 11/02/24 23:58 Creatinine 0.5 mg/dL (0.55-1.02) L 11/02/24 23:58 Est GFR (CKD-EPI 2020) 127.72 (mL/min/1.73m2) 11/02/24 23:58 Glucose 124 mg/dL (74-106) H 11/02/24 23:58 Calcium 9.1 mg/dL (8.5-10.1) 11/02/24 23:58 Total Bilirubin 0.2 mg/dL (0.2-1.0) 11/02/24 23:58 AST 21 U/L (15-37) 11/02/24 23:58 ALT 31 U/L (14-59) 11/02/24 23:58 Alkaline Phosphatase 165 U/L (46-116) H 11/02/24 23:58 Total Protein 6.8 g/dL (6.4-8.2) 11/02/24 23:58 Albumin 2.8 g/dL (3.4-5.0) L 11/02/24 23:58 Membranes Rupture Positive 11/02/24 23:18 ABO/Rh A Positive 11/02/24 23:58 Antibody Screen NEGATIVE 11/02/24 23:58 Subjective Patient Reports: No new Complaints Interval history since last seen: Slept well until 444. She continues resting and breathing through stronger contractions. Results Hemoglobin/Hematocrit: Hgb 11.9 g/dL (11.2-15.7) 11/02/24 23:58 Hct 35.3 % (36.0-46.0) L 11/02/24 23:58 Abnormal Lab Findings: Abnormal Labs 11/02/24 23:58 WBC 13.17 H Hct 35.3 L Creatinine 0.5 L Glucose 124 H Alkaline Phosphatase 165 H Albumin 2.8 L
--- NOTE | 2024-11-03 10:49 | W.PM.OBNL1 ---
Date of service: 11/03/24 Time of Service: 10:49 Informed Consent Informed Consent: Augmentation of Labor and Risk,Benefits,Alternatives Discussed Pelvic Exam Comments: Exam deferred Contractions Monitor Mode: Palpation Contraction Frequency(min): every 3-5 min Contraction Duration(sec): 40-60 Intensity: Moderate Fetus A Monitor: Doppler Heart Rate Baseline: 140 FHR Rhythm: Regular Decelerations: None Assessment and Plan Assessment and plan (1) Prolonged rupture of membranes: Status: Acute Assessment and plan: Reviewed option of pitocin induction and Barbara is in agreement with this plan. Will start pitocin per protocol for induction of labor. She is considering epidural for pain relief. Objective Abnormal lab results 11/02/24 Range/Units 23:58 WBC 13.17 H (4.4-10.8) 10^3/uL Hct 35.3 L (36.0-46.0) % Creatinine 0.5 L (0.55-1.02) mg/dL Glucose 124 H (74-106) mg/dL Alkaline Phosphatase 165 H (46-116) U/L Albumin 2.8 L (3.4-5.0) g/dL Temp Pulse Resp BP 98.1 F 93 H 16 126/72 11/03/24 08:15 11/03/24 07:16 11/03/24 00:28 11/03/24 07:16 Laboratory Results WBC 13.17 10^3/uL (4.4-10.8) H 11/02/24 23:58 RBC 4.19 10^6/uL (3.93-5.22) 11/02/24 23:58 Hgb 11.9 g/dL (11.2-15.7) 11/02/24 23:58 Hct 35.3 % (36.0-46.0) L 11/02/24 23:58 MCV 84 fL (80-95) 11/02/24 23:58 MCH 28.4 pg (27.0-33.0) 11/02/24 23:58 MCHC 33.7 % (32.0-36.0) 11/02/24 23:58 RDW 12.5 % (11.7-14.6) 11/02/24 23:58 Plt Count 246 10^3/uL (130-400) 11/02/24 23:58 MPV 9.6 fL (8.0-11.0) 11/02/24 23:58 Sodium 136 mmol/L (136-145) 11/02/24 23:58 Potassium 3.5 mmol/L (3.5-5.1) 11/02/24 23:58 Chloride 103 mmol/L (98-107) 11/02/24 23:58 Carbon Dioxide 23.3 mmol/L (21.0-32.0) 11/02/24 23:58 Anion Gap 9.7 mmol/L (3-11) 11/02/24 23:58 BUN 10 mg/dL (7-18) 11/02/24 23:58 Creatinine 0.5 mg/dL (0.55-1.02) L 11/02/24 23:58 Est GFR (CKD-EPI 2020) 127.72 (mL/min/1.73m2) 11/02/24 23:58 Glucose 124 mg/dL (74-106) H 11/02/24 23:58 Calcium 9.1 mg/dL (8.5-10.1) 11/02/24 23:58 Total Bilirubin 0.2 mg/dL (0.2-1.0) 11/02/24 23:58 AST 21 U/L (15-37) 11/02/24 23:58 ALT 31 U/L (14-59) 11/02/24 23:58 Alkaline Phosphatase 165 U/L (46-116) H 11/02/24 23:58 Total Protein 6.8 g/dL (6.4-8.2) 11/02/24 23:58 Albumin 2.8 g/dL (3.4-5.0) L 11/02/24 23:58 Membranes Rupture Positive 11/02/24 23:18 ABO/Rh A Positive 11/02/24 23:58 Antibody Screen NEGATIVE 11/02/24 23:58 Subjective Patient Reports: No new Complaints Interval history since last seen: Barbara is feeling tired. She has ambulated for comfort and her contractions have not increased in strength in the past 3 hours. Results Hemoglobin/Hematocrit: Hgb 11.9 g/dL (11.2-15.7) 11/02/24 23:58 Hct 35.3 % (36.0-46.0) L 11/02/24 23:58 Abnormal Lab Findings: Abnormal Labs 11/02/24 23:58 WBC 13.17 H Hct 35.3 L Creatinine 0.5 L Glucose 124 H Alkaline Phosphatase 165 H Albumin 2.8 L
[2024-11-03] MEDS: Normal Saline Flush 10 ML SYR IVP ×2 (10:59→11:22)
[2024-11-03] MEDS: Lactated Ringers 1,000 ML 125 ML IV ×2 (11:13→16:46)
[2024-11-03] MEDS: Oxytocin/Normal Saline 30 UNIT/500 ML BAG 2 UNITS IV (11:21)
--- NOTE | 2024-11-03 15:18 | W.PM.OBNL1 ---
Date of service: 11/03/24 Time of Service: 15:18 Informed Consent Informed Consent: Augmentation of Labor and Risk,Benefits,Alternatives Discussed Pelvic Exam Comments: cervical exam deferred until after epidural Contractions Monitor Mode: External Contraction Frequency(min): every 2-3 Contraction Duration(sec): 60 Intensity: Strong Fetus A Monitor: External (US) Heart Rate Baseline: 140 Presentation: Cephalic Variability: Moderate (6-25 BPM) Categories: Category I FHR Rhythm: Regular Accelerations: 15 X 15 Decelerations: None Assessment and Plan Assessment and plan (1) Prolonged rupture of membranes: Status: Acute Assessment and plan: Prepared for epidural and Marquise ulloa. Will perform cervical exam after epidural is in place. Anticipate . Objective Abnormal lab results 11/02/24 Range/Units 23:58 WBC 13.17 H (4.4-10.8) 10^3/uL Hct 35.3 L (36.0-46.0) % Creatinine 0.5 L (0.55-1.02) mg/dL Glucose 124 H (74-106) mg/dL Alkaline Phosphatase 165 H (46-116) U/L Albumin 2.8 L (3.4-5.0) g/dL Temp Pulse Resp BP 99.1 F 96 H 18 137/70 11/03/24 15:09 11/03/24 13:32 11/03/24 11:11 11/03/24 13:32 Laboratory Results WBC 13.17 10^3/uL (4.4-10.8) H 11/02/24 23:58 RBC 4.19 10^6/uL (3.93-5.22) 11/02/24 23:58 Hgb 11.9 g/dL (11.2-15.7) 11/02/24 23:58 Hct 35.3 % (36.0-46.0) L 11/02/24 23:58 MCV 84 fL (80-95) 11/02/24 23:58 MCH 28.4 pg (27.0-33.0) 11/02/24 23:58 MCHC 33.7 % (32.0-36.0) 11/02/24 23:58 RDW 12.5 % (11.7-14.6) 11/02/24 23:58 Plt Count 246 10^3/uL (130-400) 11/02/24 23:58 MPV 9.6 fL (8.0-11.0) 11/02/24 23:58 Sodium 136 mmol/L (136-145) 11/02/24 23:58 Potassium 3.5 mmol/L (3.5-5.1) 11/02/24 23:58 Chloride 103 mmol/L (98-107) 11/02/24 23:58 Carbon Dioxide 23.3 mmol/L (21.0-32.0) 11/02/24 23:58 Anion Gap 9.7 mmol/L (3-11) 11/02/24 23:58 BUN 10 mg/dL (7-18) 11/02/24 23:58 Creatinine 0.5 mg/dL (0.55-1.02) L 11/02/24 23:58 Est GFR (CKD-EPI 2020) 127.72 (mL/min/1.73m2) 11/02/24 23:58 Glucose 124 mg/dL (74-106) H 11/02/24 23:58 Calcium 9.1 mg/dL (8.5-10.1) 11/02/24 23:58 Total Bilirubin 0.2 mg/dL (0.2-1.0) 11/02/24 23:58 AST 21 U/L (15-37) 11/02/24 23:58 ALT 31 U/L (14-59) 11/02/24 23:58 Alkaline Phosphatase 165 U/L (46-116) H 11/02/24 23:58 Total Protein 6.8 g/dL (6.4-8.2) 11/02/24 23:58 Albumin 2.8 g/dL (3.4-5.0) L 11/02/24 23:58 Membranes Rupture Positive 11/02/24 23:18 ABO/Rh A Positive 11/02/24 23:58 Antibody Screen NEGATIVE 11/02/24 23:58 Subjective Patient Reports: New Complaints Interval history since last seen: Elisa complains of fatigue. She used nitrous oxide with fair effect and has requested an epidural. Results Hemoglobin/Hematocrit: Hgb 11.9 g/dL (11.2-15.7) 11/02/24 23:58 Hct 35.3 % (36.0-46.0) L 11/02/24 23:58 Abnormal Lab Findings: Abnormal Labs 11/02/24 23:58 WBC 13.17 H Hct 35.3 L Creatinine 0.5 L Glucose 124 H Alkaline Phosphatase 165 H Albumin 2.8 L
[2024-11-03] MEDS: FentaNYL/ROPIvacaine 2 mcg/ml and 0.1% 200 ML CADD Cassette EP (15:57)
--- NOTE | 2024-11-03 16:10 | ANES.PREOP_ITS ---
General Info Date of Service Date Performed: 11/03/24 Height: 5 ft 9 in Weight: 114.305 kg Body Mass Index (BMI): 37.2 Meds Allergies and Home Medications Allergies Allergy/AdvReac Type Severity Reaction Status Date / Time ciprofloxacin (From Cipro) AdvReac Severe TOOK OUT Verified 11/03/24 07:51 [employer] Home Medication ?Medication ?Instructions ?Recorded acetaminophen 325 mg tablet 650 mg PO Q4H PRN 06/30/20 (Tylenol) aspirin 81 mg tablet,delayed 81 mg PO DAILY #90 tabs 05/08/24 release vits no.126-ferrous fum 1 tab PO DAILY 05/08/24 28 mg iron-folic acid 800 mcg tablet (Classic ) magnesium 200 mg tablet 200 mg PO DAILY 09/20/24 Saccharomyces boulardii 250 mg 250 mg PO DAILY 10/18/24 capsule (Daily Probiotic (S. boulardii)) pyridoxine (vitamin B6) 25 mg 25 mg PO DAILY PRN 11/01/24 tablet Current Visit Medications: Current Medications Generic Name Dose Route Start Last Admin Trade Name Freq PRN Reason Stop Dose Admin Ringer's Solution 1,000 mls @ 125 mls/hr 11/03/24 11:00 11/03/24 11:13 IV 125 mls/hr INFUSION LAURI Administration Oxytocin/Sodium Chloride 30 unit in 500 mls @ 2 mls/hr 11/03/24 11:00 11/03/24 12:00 Pitocin/Normal Saline IV 4 milliunits/min INFUSION LAURI 4 mls/hr Titration Protocol 2 MILLIUNITS/MIN IV Miscellaneous Supplies 1 each 11/02/24 23:45 Iv Access IV DIRECTED LAURI IV Miscellaneous Supplies 1 each 11/03/24 11:00 Iv Access IV DIRECTED LAURI Sodium Chloride 0 ml 11/02/24 23:47 11/03/24 11:22 Normal Saline Flush 10 Ml Syr IVP 10 ml PRN PRN Administration Sodium Chloride 0 ml 11/03/24 08:30 11/03/24 11:27 Normal Saline Flush 10 Ml Syr IVP Not Given BID LAURI Sodium Chloride 0 ml 11/02/24 23:47 Normal Saline 10 Ml Vial IJ DIRECTED PRN Sodium Chloride 0 ml 11/03/24 10:48 Normal Saline Flush 10 Ml Syr IVP PRN PRN Sodium Chloride 0 ml 11/03/24 20:00 Normal Saline Flush 10 Ml Syr IVP BID LAURI Sodium Chloride 0 ml 11/03/24 10:48 Normal Saline 10 Ml Vial IJ DIRECTED PRN PFSH Active Problems Active Problems: Problem Status Onset Code Prolonged rupture of membranes Acute O42.90 Spontaneous onset of labor Acute History of episode of anxiety Acute Z86.59 Acute Z34.90 Chronic bilateral low back pain Acute M54.50, G89.29 Lumbar radiculopathy Acute M54.16 Sacroiliac joint dysfunction of both sides Acute M53.3 Arthralgia Acute M25.50 Medical History Medical History (Updated 11/03/24 @ 10:51 by Kassidy Olson CNM) Spasm of muscle of lower back Annual physical exam (12/25/17) Missed menses L4-L5 disc bulge Hedy-rectal abscess IBS (irritable bowel syndrome) Rectal bleeding Surgical History Surgical History History of colonoscopy (04/28/14) Incision & Drainage, Abscess or Hematoma perirectal abscess Colonoscopy - MAC Tobacco Smoking/Tobacco Use Status: Current-Occasional Passive smoking exposure: Yes Alcohol Alcohol Intake: current Alcohol intake frequency: a few times a week Alcohol type: wine and hard liquor Substance Use Substance use: Rarely Substance use type: marijuana Prental History History 2 1 Para 0 Hx # Term Pregnancies 0 Multiple births 0 Hx # Pregnancies 0 Ectopic pregnancies 0 AB induced 0 Hx Number of Living Children 0 AB spontaneous 0 Vital Signs and Lab Results Vital Signs Most Recent Vital Signs in EMR: Most Recent Vital Signs Temp Pulse Resp BP Pulse Ox 37.0 C 104 H 16 125/61 99 11/03/24 16:01 11/03/24 16:09 11/03/24 16:01 11/03/24 16:04 11/03/24 16:08 Lab Results 11/02/24 23:58 11/02/24 23:58 Blood Type / Crossmatch: 2 Antibody Screen NEGATIVE 11/02/24 Complete Blood Count: 2 White Blood Count 13.17 10^3/uL (4.4-10.8) H 11/02/24 23:58 Red Blood Count 4.19 10^6/uL (3.93-5.22) 11/02/24 23:58 Hemoglobin 11.9 g/dL (11.2-15.7) 11/02/24 23:58 Hematocrit 35.3 % (36.0-46.0) L 11/02/24 23:58 Platelet Count 246 10^3/uL (130-400) 11/02/24 23:58 Complete Metabolic Panel: 2 Sodium 136 mmol/L (136-145) 11/02/24 23:58 Potassium 3.5 mmol/L (3.5-5.1) 11/02/24 23:58 Chloride 103 mmol/L (98-107) 11/02/24 23:58 Carbon Dioxide 23.3 mmol/L (21.0-32.0) 11/02/24 23:58 BUN 10 mg/dL (7-18) 11/02/24 23:58 Creatinine 0.5 mg/dL (0.55-1.02) L 11/02/24 23:58 Est GFR (CKD-EPI 2020) 127.72 (mL/min/1.73m2) 11/02/24 23:58 Calcium 9.1 mg/dL (8.5-10.1) 11/02/24 23:58 Albumin 2.8 g/dL (3.4-5.0) L 11/02/24 23:58 Glucose 124 mg/dL (74-106) H 11/02/24 23:58 Liver Function Panel: 2 Alanine Aminotransferase (ALT/SGPT) 31 U/L (14-59) 11/02/24 23: 58 Aspartate Amino Transf (AST/SGOT) 21 U/L (15-37) 11/02/24 23:58 Coagulation Panel: 2 No Data to Display Cardiac Panel: 2 No Data to Display Arterial Blood Gas: 2 No Data to Display Venous Blood Gas: 2 No Data to Display Pancreas Panel: 2 No Data to Display Thyroid Panel: 2 No Data to Display Infectious Disease: 2 No Data to Display Blood Cultures: 2 No Data to Display Toxicology Panel: 2 No Data to Display Panel: 2 No Data to Display Anesthesia Assessment and Plan Anesthesia History Personal History: No History of Anesthesia Complications Family History: No Family History of Anesthesia Complications Exercise Tolerance Exercise Tolerance: Metabolic Equivalents>4 Cardiac & Pulmonary Exam Cardiac Exam: Normal S1/S2 Heart Sounds Pulmonary Exam: Clear Bilateral Breath Sounds Implantable Cardiac Device Does patient have a Pacemaker or an ICD?: No Airway Exam Known Difficult Airway: No Mallampati Class: 2 Mouth Opening: Normal (> 3cm) Thyromental Distance: Greater than 3 cm Neck Range of Motion: Full ROM Neck Circumference: Normal Teeth Condition: Normal Dentition ASA Classification ASA Score: ASA 2 Emergency Case?: No NPO Status NPO Status: Full Stomach Status Status: Confirmed Anesthesia Plan Resuscitation Status: Full Code Anesthesia Technique: Labor Epidural Airway Planned: Natural Airway Monitors Used: Standard Monitors
--- NOTE | 2024-11-03 16:13 | ANES.NEUR_ITS ---
Epidural/Spinal Catheter Date Performed: 11/03/24 Procedure Start: 15:40 Procedure Stop: 16:13 Requesting Provider: Kassidy Olson Procedure Location: Obstetrics Reason Performed: Labor Epidural Standard Monitors Applied: Blood Pressure, SpO2 and See EMR for corresponding vital signs Patient Position: Sitting Sedation Given (Indicate Dose Given): No Sedation given Patient Mental Status: Awake Sterility: Hand Hygiene, Surgical Cap, Surgical Mask, Sterile Gloves, Sterile Drape/Sheet and Chlorhexidine Procedure Location: L2-L3 Interspace Epidural Needle: Tuohy 18 Gauge Needle Length: 4 Inch Needle Approach: Midline Epidural Procedure: Skin Prepped, Sterile Drape Placed, 1% Lidocaine to skin and subcutaneous tissue with 25G needle, Tuohy Needle placed, GURINDER to Saline Used, Epidural Catheter Placed, Negative Heme, Negative CSF Flow and Tuohy Needle Removed Catheter Placed?: Catheter Placed Test Dose (Indicate Dose Given): 3ml 1.5% Lidocaine with 1:200K Epinephrine Given and Negative Test Dose Loss of Resistance Depth (cm): 7 Catheter depth at skin (cm): 13 Dressing: Sorbaview Dressing Placed, Mastisol Used and Dressing reinforced with Tape Epidural Prov ider Bolus (Indicate Dose Given): Total bolus dose given in 3-5 ml divided doses and Total Ropivacaine 0.1% with Fentanyl 2mcg/ml Given from pump. (ml) Dose:: 5ml Additives (Indicate Dose Given ): None Infusion Medication: Medication Infusion Began Medication Infusion: Ropivacaine 0.1% with Fentanyl 2mcg/ml Maintenance Infusion Rate (ml/hour): 10 PCEA Bolus Dose (ml): 5 Post Procedure Pain score (0-10): 0 Block Level: N/A Paresthesia: None Ultrasound: Used to isabela site Number of Attempts (See previous attempts in note section): 2 Procedure Tolerated: No Complications and Patient tolerated well Procedure Outcome: Successful Procedure Comment:: 1st attempt encountered top of spinousprocess, moved slightly cephalad in same space with good effect. Educated on PCEA. Motor 5/5, legs feel heavy, arms/hands/fingers normal exam. No concerns. Questions answered. Performed By: Marquise Ugalde
--- NOTE | 2024-11-03 16:31 | W.PM.OBNL1 ---
Date of service: 11/03/24 Time of Service: 16:31 Informed Consent Informed Consent: Augmentation of Labor and Risk,Benefits,Alternatives Discussed Pelvic Exam Dilation: 3 Effacement (%): 100 station: -1 Cervix Position: mid Consistency: soft Vaginal Exam Presentation: Cephalic Contractions Monitor Mode: External Contraction Frequency(min): every 3 min Contraction Duration(sec): 60 Intensity: Strong Fetus A Monitor: External (US) Heart Rate Baseline: 140 Presentation: Cephalic Variability: Moderate (6-25 BPM) Categories: Category I FHR Rhythm: Regular Accelerations: 15 X 15 Decelerations: None Assessment and Plan Assessment and plan (1) Prolonged rupture of membranes: Status: Acute Assessment and plan: Rest encouraged and anticipate . Will reassess in 2-3 hours for cervical change. Objective Abnormal lab results 11/02/24 Range/Units 23:58 WBC 13.17 H (4.4-10.8) 10^3/uL Hct 35.3 L (36.0-46.0) % Creatinine 0.5 L (0.55-1.02) mg/dL Glucose 124 H (74-106) mg/dL Alkaline Phosphatase 165 H (46-116) U/L Albumin 2.8 L (3.4-5.0) g/dL Temp Pulse Resp BP Pulse Ox 98.6 F 97 H 16 113/59 L 98 11/03/24 16:01 11/03/24 16:29 11/03/24 16:01 11/03/24 16:25 11/03/24 16:28 Laboratory Results WBC 13.17 10^3/uL (4.4-10.8) H 11/02/24 23:58 RBC 4.19 10^6/uL (3.93-5.22) 11/02/24 23:58 Hgb 11.9 g/dL (11.2-15.7) 11/02/24 23:58 Hct 35.3 % (36.0-46.0) L 11/02/24 23:58 MCV 84 fL (80-95) 11/02/24 23:58 MCH 28.4 pg (27.0-33.0) 11/02/24 23:58 MCHC 33.7 % (32.0-36.0) 11/02/24 23:58 RDW 12.5 % (11.7-14.6) 11/02/24 23:58 Plt Count 246 10^3/uL (130-400) 11/02/24 23:58 MPV 9.6 fL (8.0-11.0) 11/02/24 23:58 Sodium 136 mmol/L (136-145) 11/02/24 23:58 Potassium 3.5 mmol/L (3.5-5.1) 11/02/24 23:58 Chloride 103 mmol/L (98-107) 11/02/24 23:58 Carbon Dioxide 23.3 mmol/L (21.0-32.0) 11/02/24 23:58 Anion Gap 9.7 mmol/L (3-11) 11/02/24 23:58 BUN 10 mg/dL (7-18) 11/02/24 23:58 Creatinine 0.5 mg/dL (0.55-1.02) L 11/02/24 23:58 Est GFR (CKD-EPI 2020) 127.72 (mL/min/1.73m2) 11/02/24 23:58 Glucose 124 mg/dL (74-106) H 11/02/24 23:58 Calcium 9.1 mg/dL (8.5-10.1) 11/02/24 23:58 Total Bilirubin 0.2 mg/dL (0.2-1.0) 11/02/24 23:58 AST 21 U/L (15-37) 11/02/24 23:58 ALT 31 U/L (14-59) 11/02/24 23:58 Alkaline Phosphatase 165 U/L (46-116) H 11/02/24 23:58 Total Protein 6.8 g/dL (6.4-8.2) 11/02/24 23:58 Albumin 2.8 g/dL (3.4-5.0) L 11/02/24 23:58 Membranes Rupture Positive 11/02/24 23:18 ABO/Rh A Positive 11/02/24 23:58 Antibody Screen NEGATIVE 11/02/24 23:58 Subjective Patient Reports: No new Complaints Interval history since last seen: Resting comfortably with epidural. Pitocin remains at 4 mu/min Results Hemoglobin/Hematocrit: Hgb 11.9 g/dL (11.2-15.7) 11/02/24 23:58 Hct 35.3 % (36.0-46.0) L 11/02/24 23:58 Abnormal Lab Findings: Abnormal Labs 11/02/24 23:58 WBC 13.17 H Hct 35.3 L Creatinine 0.5 L Glucose 124 H Alkaline Phosphatase 165 H Albumin 2.8 L
--- NOTE | 2024-11-03 19:14 | W.PM.OBNL1 ---
Date of service: 11/03/24 Time of Service: 19:14 Informed Consent Informed Consent: Augmentation of Labor and Risk,Benefits,Alternatives Discussed Pelvic Exam Dilation: 10 station: +1 Contractions Monitor Mode: External Contraction Frequency(min): every 3-4 Contraction Duration(sec): 60 Intensity: Strong Fetus A Monitor: External (US) Heart Rate Baseline: 140 Variability: Moderate (6-25 BPM) Categories: Category I FHR Rhythm: Regular Accelerations: 15 X 15 Decelerations: None Assessment and Plan Assessment and plan (1) Prolonged rupture of membranes: Status: Acute Assessment and plan: assist with pushing and anticipate . Objective Abnormal lab results 11/02/24 Range/Units 23:58 WBC 13.17 H (4.4-10.8) 10^3/uL Hct 35.3 L (36.0-46.0) % Creatinine 0.5 L (0.55-1.02) mg/dL Glucose 124 H (74-106) mg/dL Alkaline Phosphatase 165 H (46-116) U/L Albumin 2.8 L (3.4-5.0) g/dL Temp Pulse Resp BP Pulse Ox 98.1 F 99 H 16 138/92 H 100 11/03/24 18:45 11/03/24 19:12 11/03/24 18:23 11/03/24 19:12 11/03/24 19:09 Laboratory Results WBC 13.17 10^3/uL (4.4-10.8) H 11/02/24 23:58 RBC 4.19 10^6/uL (3.93-5.22) 11/02/24 23:58 Hgb 11.9 g/dL (11.2-15.7) 11/02/24 23:58 Hct 35.3 % (36.0-46.0) L 11/02/24 23:58 MCV 84 fL (80-95) 11/02/24 23:58 MCH 28.4 pg (27.0-33.0) 11/02/24 23:58 MCHC 33.7 % (32.0-36.0) 11/02/24 23:58 RDW 12.5 % (11.7-14.6) 11/02/24 23:58 Plt Count 246 10^3/uL (130-400) 11/02/24 23:58 MPV 9.6 fL (8.0-11.0) 11/02/24 23:58 Sodium 136 mmol/L (136-145) 11/02/24 23:58 Potassium 3.5 mmol/L (3.5-5.1) 11/02/24 23:58 Chloride 103 mmol/L (98-107) 11/02/24 23:58 Carbon Dioxide 23.3 mmol/L (21.0-32.0) 11/02/24 23:58 Anion Gap 9.7 mmol/L (3-11) 11/02/24 23:58 BUN 10 mg/dL (7-18) 11/02/24 23:58 Creatinine 0.5 mg/dL (0.55-1.02) L 11/02/24 23:58 Est GFR (CKD-EPI 2020) 127.72 (mL/min/1.73m2) 11/02/24 23:58 Glucose 124 mg/dL (74-106) H 11/02/24 23:58 Calcium 9.1 mg/dL (8.5-10.1) 11/02/24 23:58 Total Bilirubin 0.2 mg/dL (0.2-1.0) 11/02/24 23:58 AST 21 U/L (15-37) 11/02/24 23:58 ALT 31 U/L (14-59) 11/02/24 23:58 Alkaline Phosphatase 165 U/L (46-116) H 11/02/24 23:58 Total Protein 6.8 g/dL (6.4-8.2) 11/02/24 23:58 Albumin 2.8 g/dL (3.4-5.0) L 11/02/24 23:58 Membranes Rupture Positive 11/02/24 23:18 ABO/Rh A Positive 11/02/24 23:58 Antibody Screen NEGATIVE 11/02/24 23:58 Subjective Patient Reports: New Complaints Interval history since last seen: Barbara is experiencing pressure and was examined and is fully dilated. She was straight cathed for 500 cc clear urine Results Hemoglobin/Hematocrit: Hgb 11.9 g/dL (11.2-15.7) 11/02/24 23:58 Hct 35.3 % (36.0-46.0) L 11/02/24 23:58 Abnormal Lab Findings: Abnormal Labs 11/02/24 23:58 WBC 13.17 H Hct 35.3 L Creatinine 0.5 L Glucose 124 H Alkaline Phosphatase 165 H Albumin 2.8 L
[2024-11-03] MEDS: Oxytocin/Normal Saline 30 UNIT/500 ML BAG 95 UNITS IV (21:45)
--- NOTE | 2024-11-03 22:05 | W.OBDELIVERY ---
Date of service: 11/03/24 Time of Service: 22:05 OB Labor/ Delivery Information Baby A Delivery Delivery Method: Spontaneaous Presentation: Cephalic Vertex Position: Left Occipital Anterior Cord Description-Baby A: 3 Vessels Cord Description Comment: short cord Amniotic Fluid: Clear Estimated Blood Loss: 400 Delivery Outcome: Liveborn Infant Transferred: Remains with Mother Note: Barbara began pushing well in various positions. FHTs 140s during first stage of labor. FHTs 160-170s in second stage. Second stage huddle was done. Spontaneous delivery of female infant delivered in OLYA position. Baby was placed on mother's abdomen and dried and stimulated. Spontaneous cry. Cord was clamped and cut by the baby's father . The placenta delivered spontaneously and appears to by intact with a three vessel cord. Pitocin 30 units was administered before delivery of the placenta. The perineum was inspected and a second degree laceration was repaired . The baby did breastfeed. After delivery, Mother and baby and father of the baby were stable and bonding well in the delivery room and there were no complications. Labor/Delivery Information Group Beta Strep: Negative Antibiotics Administered: No Rubella Status: Immune Blood Type: A+ Varicella Immunity: Immune Born En Route: No Maternal Complications: None Shoulder Dystocia: No Stages of Labor Onset of Labor Date: 11/02/24 Onset of Labor Time: 18:30 ROM Baby A: 11/02/24 ROM Baby A: 18:30 Baby A Gender: Female Interventions Repair of Laceration Type: Perineal, Laceration Extension: Second Degree. Sponge Count Correct: No Sponges Placed in Vagina, Sharp Count Correct: Yes. Laceration Repair Note: repair with 3-0 and 2-0 vicryl sutures under epidural analgesia
[2024-11-03] MEDS: Ibuprofen 600 MG TAB PO (23:39)
[2024-11-03] MEDS: Acetaminophen 325 MG TAB 650 MG PO (23:39)
[2024-11-04 00:04] VITALS: BP 129/62; PULSE 94
[2024-11-04] MEDS: Dibucaine 1% 28 GM TUBE (00:18)
[2024-11-04] MEDS: Hamamelis Leaf/Glycerin 100 EACH BOX (00:19)
[2024-11-04 02:31] VITALS: BP 121/81; PULSE 82; RESP 18; TEMP 36.8
[2024-11-04] MEDS: Ibuprofen 600 MG TAB PO ×3 (06:00→17:51)
[2024-11-04] MEDS: Acetaminophen 325 MG TAB 650 MG PO ×3 (06:00→17:51)
[2024-11-04 07:20] VITALS: BP 116/74; PULSE 90; RESP 18; TEMP 36.5; O2SAT 97
[2024-11-04] MEDS: Docusate Sodium 100 MG CAP PO (07:56)
[2024-11-04] MEDS: Normal Saline Flush 10 ML SYR IVP (07:56)
--- NOTE | 2024-11-04 10:08 | W.ANESPOSTOP ---
Postoperative Evaluation Date, Time and Location Date Performed: 11/04/24 Time Performed: 10:08 Patient Location: Obstetrics Vital Signs Most Recent Imported Vital Signs: Most Recent Vital Signs Temp Pulse Resp BP Pulse Ox 36.5 C 90 18 116/74 97 11/04/24 07:20 11/04/24 07:20 11/04/24 07:20 11/04/24 07:20 11/04/24 07:20 Pain Score Most Recent Pain Score: Most Recent Pain Score Pain Level [Abdomen] 3 11/04/24 07:20 Pain Level 3 11/04/24 07:00 Assessment Mental Status: Awake (Alert & Oriented to Patient Baseline) Airway and Respiratory Function: Patent airway with normal (patient baseline) respiratory exam Cardiovascular Function: Hemodynamically Stable Hydration Status: Adequately Hydrated Nausea & Vomiting: No Nausea or Vomiting Pain: Pain is tolerable per patient Peripheral Nerve Block: Patient did not receive a nerve block
--- NOTE | 2024-11-04 11:05 | W.PM.OBPNV1 ---
Date of service: 11/04/24 Time of Service: 11:05 Assessment and Plan Assessment and plan (1) Term of female : Status: Acute Assessment and plan: Caring for baby independently. Pain is managed well with oral analgesics. Voiding without difficulty. well. A - stable mother and baby , Post day 1 P - Discharge to home tomorrow . Routine post instructions. [facility] Subjective Subjective Patient comments: No complaints [place] baby status: Doing well feeding status: Exclusively breast feeding Narrative: Receiving assistance with latch due to inverted nipples. She is using a nipple shield to facilitate this. Exam Physical Exam Vital signs: Temp Pulse Resp BP Pulse Ox 97.7 F 90 18 116/74 97 11/04/24 07:20 11/04/24 07:20 11/04/24 07:20 11/04/24 07:20 11/04/24 07:20 Vital Signs Reviewed: Yes Constitutional Constitutional: no acute distress Respiratory Exam Respiratory Exam: Normal Cardiovascular Exam Cardiovascular Exam: Normal Fundal Exam Fundus: Below Umbilicus and Firm Extremities Exam Extremity Exam: Normal Skin Exam Skin Exam: Normal Psychiatric Exam Psychiatric Exam: Normal Results Hemoglobin/Hematocrit: Hgb 11.9 g/dL (11.2-15.7) 11/02/24 23:58 Hct 35.3 % (36.0-46.0) L 11/02/24 23:58 Abnormal Lab Findings: Abnormal Labs 11/02/24 23:58 WBC 13.17 H Hct 35.3 L Creatinine 0.5 L Glucose 124 H Alkaline Phosphatase 165 H Albumin 2.8 L
[2024-11-04 11:55] VITALS: BP 125/76; PULSE 75; RESP 18; TEMP 36.6; O2SAT 97
[2024-11-04 16:05] VITALS: BP 127/77; PULSE 75; RESP 18; TEMP 36.6; O2SAT 97
[2024-11-04 20:20] VITALS: BP 126/83; PULSE 86; RESP 18; TEMP 36.6
[2024-11-05] MEDS: Acetaminophen 325 MG TAB 650 MG PO ×3 (00:35→11:25)
[2024-11-05] MEDS: Ibuprofen 600 MG TAB PO ×2 (00:35→07:15)
[2024-11-05 07:15] VITALS: BP 124/78; PULSE 86; RESP 16; TEMP 36.6
--- NOTE | 2024-11-05 10:28 | DSE_ITS ---
Date of service: 11/05/24 Time of Service: 10:28 DS: Diagnosis Discharge Diagnosis (1) Term of female : Status: Acute Asessment and Plan: Caring for baby independently. Pain is managed well with oral analgesics. Voiding without difficulty. well with a nipple shield. A - stable mother and baby , Post day 2 P - Discharge to home today. Routine post instructions. [facility] Discharge Plan Disposition Patient Disposition: Home Condition: Good Discharge Details Reason For Visit: labor Admit Date/Time: 11/02/24 23:47 Admit Provider: Kassidy Olson Attending Provider: Kassidy Olson Primary Care Provider: Cindy Mota Home Meds and New Rx's Prescriptions: No Action magnesium 200 mg tablet 200 mg PO DAILY Saccharomyces boulardii [Daily Probiotic (S. boulardii)] 250 mg capsule 250 mg PO DAILY acetaminophen [Tylenol] 325 mg tablet 650 mg PO Q4H PRN Classic 28 mg iron- 800 mcg tablet 1 tab PO DAILY aspirin 81 mg tablet,delayed release (DR/EC) 81 mg PO DAILY Qty: 90 6RF Rx Instructions: 1 tab daily alternating with two tabs every other day pyridoxine (vitamin B6) 25 mg tablet 25 mg PO DAILY PRN Discharge Instructions Activity:: Activity as Tolerated Equipment/Supplies:: No Equipment Needed Diet:: As Tolerated Discharge Orders Discharge Orders: Discharge Order (Routine); Ordered 11/05/24 Ordered By: Kassidy Olson OB:DS Summary Summary Vaginal Delivery Method: Spontaneaous Episiotomy Description: None Laceration Description: Perineal Laceration Extension: Second Degree Contraception Discussed Contraception Discussed: Yes Contraceptive Plan: Foam/Condoms and Diaphragm, Gender-Baby A: Female weight: 6 lb 11.233 oz Status at Discharge Functional status at discharge: independent ambulation Overall status at discharge: patient is back to baseline Mental Status: mental status grossly normal Speech and Movement: speech and movement normal Mood: congruent mood Affect: normal affect Quality:SDOH Health Related Social Needs: No Data to Display Exam Physical Exam Vital signs: Temp Pulse Resp BP Pulse Ox 97.9 F 86 16 124/78 97 11/05/24 07:15 11/05/24 07:15 11/05/24 07:15 11/05/24 07:15 11/04/24 16:05 Vital Signs Reviewed: Yes Constitutional Constitutional: no acute distress HEENT Exam HEENT Exam: Normal Respiratory Exam Respiratory Exam: Normal Cardiovascular Exam Cardiovascular Exam: Normal Fundal Exam Fundus: Below Umbilicus and Firm Exam Perineum: Intact External: Absent erythema, tenderness or ecchymosis Extremities Exam Extremity Exam: Normal Skin Exam Skin Exam: Normal Psychiatric Exam Psychiatric Exam: Normal PFSH All Active Problems (Updated 11/03/24 @ 21:34 by Kassidy Olson CNM) Term of female (Acute) Medical History (Updated 11/03/24 @ 21:34 by Kassidy Olson CNM) Arthralgia Lumbar radiculopathy Sacroiliac joint dysfunction of both sides History of episode of anxiety Chronic bilateral low back pain L4-L5 disc bulge Spasm of muscle of lower back Annual physical exam (12/25/17) Missed menses L4-L5 disc bulge Hedy-rectal abscess IBS (irritable bowel syndrome) Rectal bleeding Surgical History History of colonoscopy (04/28/14) Incision & Drainage, Abscess or Hematoma perirectal abscess Colonoscopy - MAC Family History Mother No problems noted. Father Neoplasm PROSTATE Prostate cancer Brother Anxiety Depression Maternal Grandfather , 63 Diabetes Heart disease Hyperlipidemia Lung cancer Paternal Grandfather , 81 Heart disease Hyperlipidemia Maternal Grandmother , late 50s Depression Leukemia Paternal Grandmother , 80 History of agoraphobia Social History Smoking/Tobacco Use Status: Current-Occasional Smoking risk assessment performed?: Yes Alcohol Intake: current Alcohol Intake frequency: a few times a week Alcohol type: wine and hard liquor Drug use: Rarely Substance use type: marijuana Caregiver/Support person: Yes Housing: apartment Do you need help understanding health information?: Never Pets and animals: Yes Pets and animals: cat(s) Sexually active: Yes Do you think of yourself as: straight/heterosexual Current gender identity: female What is your relationship status?: refused to answer How often do you talk on the phone with friends or family?: decline to answer How often do you get together with friends or relatives?: three or more times per week How often do you attend moravian or yarsanism services?: decline to answer Do you belong to any clubs or organized social groups?: no Panel score (0-1 are the most socially isolated patients): 1 What type of physical activity do you participate in: bicycling and other Details: Spininng Duration: > 90 minutes/day Frequency: 5-6 times per week Roxy/Mormonism: No preference Special roxy needs: No Seatbelt use: always Helmet use: Yes Helmet use: always Drive intox or ride w/intox tour bus driver/guide: No Do you feel safe at home: Yes Do you feel safe in your relationship?: Yes Female Reproductive History Menstrual control method: none History History 1 Para 0 Hx # Term Pregnancies 0 Multiple births 0 Hx # Pregnancies 0 Ectopic pregnancies 0 AB induced 0 Hx Number of Living Children 0 AB spontaneous 0 DS: Data Vitals/I&O Vitals and I&O: Vital Signs Temperature 97.9 F 11/05/24 07:15 Temperature 98.7 F 11/03/24 00:47 Temperature Source Forehead 11/05/24 07:15 Pulse 86 11/05/24 07:15 Pulse 90 11/03/24 00:47 Pulse Rhythm Regular 11/05/24 07:15 Respiratory Rate 16 11/05/24 07:15 Respiratory Depth Normal 11/03/24 09:00 Blood Pressure 124/78 11/05/24 07:15 Blood Pressure 133/72 11/03/24 00:47 Blood Pressure Mean 93 11/05/24 07:15 Pulse Oximetry 97 11/04/24 16:05 Oxygen Delivery Method Room Air 11/03/24 00:28 Oxygen Flow Rate 0 11/03/24 00:28 Pain Level 3 11/05/24 07:15 Comment on hands and knees 11/03/24 13:32 Intake & Output 11/04/24 11/04/24 11/05/24 11:59 23:59 11:59 Output Total 1800 / 1800 Balance -1800 / -1800 Output: Urine 1800 / 1800 Other: Urine Color Yellow Pale Urine Appearance Clear Urine Odor None
== END 2024-11-05 12:50 | disposition home or self-care (01) | DRG 806 ==
PROVIDERS: Admitting Provider Advanced Practice Midwife; PCP Nurse Practitioner Family; Visit Provider Advanced Practice Midwife
DX: O42.92 Full-term premature rupture of membranes, unspecified as to length of time between rupture and onset of labor (principal); O99.324 Drug use complicating childbirth; Z37.0 Single live birth; Z3A.38 38 weeks gestation of pregnancy; O70.1 Second degree perineal laceration during delivery; O69.3XX0 Labor and delivery complicated by short cord, not applicable or unspecified; O99.62 Diseases of the digestive system complicating childbirth; G89.29 Other chronic pain; M54.16 Radiculopathy, lumbar region; K58.9 Irritable bowel syndrome, unspecified; M53.3 Sacrococcygeal disorders, not elsewhere classified; O75.89 Other specified complications of labor and delivery; F12.90 Cannabis use, unspecified, uncomplicated; O99.334 Smoking (tobacco) complicating childbirth
CPT/HCPCS: 36415; 80053; 84112; 85027; 86850; 86900; 86901; 59025; 59200; G0378

== ENCOUNTER 2025-03-18 10:56 | Outpatient (REF) | payer MEDICAID, SELFPAY ==
--- NOTE | 2025-03-18 10:20 | PAPFT_PTH ---
PATIENT: Barbara Gordon LOC: [facility] U#:[id number] AGE/SX: 35/F ROOM: RE03/18/[address]: Adriana Regalado NP : 1990 BED: DIS: 03/18/2025 SPEC #: [id number] RECD: 03/18/25 17:25 STATUS: JORGE VASQUEZ #: [id number] MIAH: 03/18/25 10:[address]: Adriana Regalado NP DEPT: [facility] Cytology RECD BY: Ioana Mei ENTERED: 03/18/25 17:25 SP TYPE: PAPFT OTHR DR: Cindy Mota NP Tissues: 1 - CX/ENDOCX FOR PAP SMEARS Procedures: PAP THIN PREP/[facility] Screening HPV DNA PROBE Comments: [id number] (HPV 16 & 18/45)
== END 2025-03-18 10:57 | disposition home or self-care (01) ==
LOC: LBN 10:56
PROVIDERS: PCP Nurse Practitioner Family; Visit Provider Nurse Practitioner Women's Health
DX: Z12.4 Encounter for screening for malignant neoplasm of cervix (principal)
CPT/HCPCS: 88142; 87624

== ENCOUNTER 2025-04-25 10:29 | Outpatient (REF) | payer MEDICAID, SELFPAY | END 2025-04-25 10:30 | disposition home or self-care (01) | LOC: LBN 10:29 | PROVIDERS: PCP Nurse Practitioner Family; Visit Provider Obstetrics & Gynecology | DX: R87.612 Low grade squamous intraepithelial lesion on cytologic smear of cervix (LGSIL) (principal) | CPT/HCPCS: 88305 ==